=== PATIENT | male | born 1980 | race Caucasian/White ===

== ENCOUNTER → 2016-03-07 | Outpatient (CLI) | payer OTHER ==
--- NOTE | 2016-03-07 22:29 | MR ---
EXAMINATION TYPE: MR brain and iac wo/w con DATE OF EXAM: 03/07/2016 7:09 PM COMPARISON: NONE HISTORY: Left Side Hearing Loss with some Dizzy CONTRAST: Standard multiplanar, multisequence MRI departmental protocol utilizing 15 mL intravenous MultiHance gadolinium contrast. FINDINGS: The ventricles and sulci appear normal. There is no mass effect or midline shift. There is no sign of intracranial hemorrhage. Goss and white matter structures have normal signal pattern. Ther e is no evidence of cerebral edema. Corpus callosum appears normal. Sella turcica appears normal. The optic chiasm appears normal. Pituitary stalk is in the midline. There is no pathologic enhancement. The internal auditory canals appear normal. There is no evidence of a cerebellopontine angle mass. Br ainstem has normal signal pattern. The temporal bones have normal signal pattern. There is no evidenc e of mastoiditis. There is no pathologic enhancement in the posterior fossa. IMPRESSION: Normal MR scan of the brain. Normal MR scan of the posterior fossa including the internal auditory canals. I do not see a cause fo r left-sided hearing loss.
== END | disposition home or self-care (01) ==
LOC: RADMRIMAIN 17:54
PROVIDERS: ATTEND Otolaryngology
DX: H93.3X2 Disorders of left acoustic nerve (principal); H91.92 Unspecified hearing loss, left ear; R42 Dizziness and giddiness
CPT/HCPCS: 70553; A9577

== ENCOUNTER 2019-03-14 10:07 | Day surgery (SDC) | payer BC, OTHER ==
[2019-03-09 15:43] VITALS: BMI 26.6
[~2019-03-14 10:07] MED LIST: LACTATED RINGERS 1,000 ML IV SCH
[2019-03-14 10:28] VITALS: TEMP 98.1
[2019-03-14] MEDS ORDERED: MIDAZOLAM 2 MG/2 ML VIAL ONE (10:28)
[2019-03-14] MEDS ORDERED: fentaNYL (PF) 50 MCG/ML 2 ML AMP ONE (10:28)
[2019-03-14] MEDS ORDERED: PROPOFOL 10 MG/ML 20 ML VIAL IV ONE (10:28)
--- NOTE | 2019-03-14 10:58 | P.PCN ---
Date of Procedure: 03/14/19 Description of Procedure: BRIEF HISTORY: Patient is a 39-year-old male presenting for outpatient es ophagogastroduodenoscopy for evaluation of symptoms of reflux. Patient reports using Prilosec OTC with relief of symptoms however his causes constipation. Denies any nausea or vomiting but does report bloating and distention. PROCEDURE PERFORMED: Esophagogastroduodenoscopy with biopsy. PREOPERATIVE DIAGNOSIS: GERD. ESTIMATED BLOOD LOSS: Minimal. IV sedation per anesthesia. PROCEDURE: After informed consent was obtained, the patient was brought into the endoscopy unit. IV sedation was administered by Anesthesia under continuous monitoring. Initially the Olympus GIF-190 video endoscope was inserted into the mouth. Esophagus intubated without any difficulty. It was gradually advanced into the stomach and duodenum and carefully examined. The bulb and the second part of the duodenum appeared normal with biopsies taken to rule out Celiac sprue. The scope at this time was withdrawn to the stomach, adequately insufflated with air, and upon careful examination, mucosa of the antrum, body, cardia and the fundus appeared normal, except for some mild punctate erythema in the antrum and body suggestive of mild gastritis with biopsies taken. The scope was then withdrawn into the esophagus. The GE junction was located at 39 cm from the incisors, with biopsies taken to rule out reflux esophagitis. The esophagus appeared normal. There were no erosions or ulcerations seen and the patient tolerated the procedure well. IMPRESSION: 1. Mild gastritis antrum body, biopsied. 2. Biopsies of the duodenum and GE junction. RECOMMENDATIONS: The findings of this examination were discussed with the patient and his . Okay to resume diet. Okay to resume medications. GERD lifestyle modifications discussed. Patient to try famotidine as an alternative to Prilosec daily relief of reflux if symptoms persist. Await pathology from biopsies.
[2019-03-14 11:21] VITALS: BP 134/89; PULSE 74; RESP 18
== END 2019-03-14 11:33 | disposition home or self-care (01) ==
LOC: ORWHC2ENDO 10:07
PROVIDERS: ATTEND Internal Medicine
DX: K29.50 Unspecified chronic gastritis without bleeding (principal); K21.9 Gastro-esophageal reflux disease without esophagitis; Z88.0 Allergy status to penicillin; Z88.1 Allergy status to other antibiotic agents; Z88.2 Allergy status to sulfonamides; Z79.899 Other long term (current) drug therapy; Z98.818 Other dental procedure status; Z80.0 Family history of malignant neoplasm of digestive organs
CPT/HCPCS: 88305; 43239; J2250; J3010; J2704

== ENCOUNTER 2020-01-05 08:08 | Day surgery (SDC) | payer BC ==
[2020-01-03 09:07] VITALS: BMI 25.8
[~2020-01-05 08:08] MED LIST changes: +LIDOCAINE 1% (10MG/ML) FOR IV START INTRADERMA PRN
[2020-01-05 08:25] VITALS: TEMP 97.6
[2020-01-05] MEDS ORDERED: LACTATED RINGERS 1,000 ML IV ONE (08:26)
[2020-01-05] MEDS ORDERED: fentaNYL (PF) 50 MCG/ML 2 ML AMP ONE (08:52)
[2020-01-05] MEDS ORDERED: MIDAZOLAM 2 MG/2 ML VIAL ONE (08:52)
[2020-01-05] MEDS ORDERED: PROPOFOL 10 MG/ML 20 ML VIAL IV ONE (08:52)
--- NOTE | 2020-01-05 09:19 | P.PCN ---
Date of Procedure: 01/05/20 Description of Procedure: BRIEF HISTORY: Patient is a 39-year-old male presenting for outpatient colonoscopy for evaluation of alternating diarrhea and constipation, change in bowel habits. He reports one year of symptoms of alternating diarrhea and constipation. He reports abdominal pain in association with his symptoms. No family history of colon cancer or IBD. PROCEDURE PERFORMED: Colonoscopy with biopsy. PREOPERATIVE DIAGNOSIS: Alternating diarrhea and constipation, change in bowel habits, no prior colonoscopy. ESTIMATED BLOOD LOSS: Minimal. IV sedation per Anesthesia. PROCEDURE: After informed consent was obtained, the patient, was brought into the endoscopy unit. IV sedation was administered by Anesthesia under continuous monitoring. Digital rectal examination was normal. Initially the Olympus CF-190 flexible video colonoscope was then inserted in the rectum, gradually advanced into the cecum without any difficulty. Careful examination was performed as the scope was gradually being withdrawn. Ileocecal valve and the appendiceal orifice were visualized and appeared normal. Prep was excellent. Mucosa of the cecum, ascending colon, transverse colon, descending colon, sigmoid colon, and rectum appeared normal, with biopsies taken of the right and left colon in the setting of altered bowel function. The terminal ileum was also normal in appearance with biopsies taken. Retroflexion was performed in the rectum and no lesions were seen. The patient tolerated the procedure well. IMPRESSION: Normal-appearing colon from rectum to cecum and normal appearing terminal ileum, with random biopsies taken of the right colon, left colon and terminal ileum. RECOMMENDATIONS: Findings of this examination were discussed with the patient and his . Okay to resume diet. Okay to resume medications. Await pathology from biopsies. Follow up with primary care physician as previously scheduled.
[2020-01-05 09:42] VITALS: BP 136/94; PULSE 64; RESP 20
== END 2020-01-05 10:06 | disposition home or self-care (01) ==
LOC: ORWHC2ENDO 08:08
PROVIDERS: ATTEND Internal Medicine
DX: R19.7 Diarrhea, unspecified (principal); K59.00 Constipation, unspecified; K21.9 Gastro-esophageal reflux disease without esophagitis; Z98.890 Other specified postprocedural states; Z79.1 Long term (current) use of non-steroidal anti-inflammatories (NSAID); Z79.899 Other long term (current) drug therapy; Z88.0 Allergy status to penicillin; Z88.2 Allergy status to sulfonamides
CPT/HCPCS: 88305; 45380; J2250; J3010; J2704

== ENCOUNTER → 2021-05-28 | Outpatient (CLI) | payer BC ==
--- NOTE | 2021-05-28 09:27 | US ---
EXAMINATION TYPE: US gallbladder DATE OF EXAM: 05/28/2021 COMPARISON: NONE CLINICAL HISTORY: 41-year-old male K82.4 GALLBLADDER POLYP. RUQ Pain TECHNIQUE: Multiple sonographic images of the right upper quadrant are obtained. FINDINGS: EXAM MEASUREMENTS: Liver Length: 13.9 cm Gallbladder Wall: .2 cm CBD: .4 cm Right Kidney: 10.6 x 3.9 x 4.8 cm Pancreas: Most of the pancreas is visualized. Duct is prominent but nondilated measuring 2 mm in uli tor. Liver: Increased echogenicity and far field attenuation. No focal lesion seen. Gallbladder: 6 mm anterior wall gallbladder polyp visualized. No abnormal distention, wall thickening , pericholecystic fluid, or shadowing calculi. Evidence for sonographic Espinal's sign: No CBD: wnl Right Kidney: wnl IMPRESSION: 1. Mild to moderate hepatic steatosis. 2. A 6 mm anterior gallbladder wall polyp. Six-month follow-up could be performed.
== END | disposition home or self-care (01) ==
LOC: RADUSWWP 07:03
PROVIDERS: ATTEND Surgery
DX: K82.4 Cholesterolosis of gallbladder (principal); K76.0 Fatty (change of) liver, not elsewhere classified
CPT/HCPCS: 76705

== ENCOUNTER → 2021-06-11 | Outpatient (CLI) | payer BC ==
--- NOTE | 2021-06-11 15:01 | NM ---
EXAMINATION TYPE: NM hepatobiliary w CCK DATE OF EXAM: 06/11/2021 COMPARISON: Ultrasound gallbladder May 28, 2021 HISTORY: Cholesterolosis of the gallbladder. Epigastric pain. TECHNIQUE: After the intravenous administration of 4.32 mCi Tc 99m Mebrofenin hepatobiliary scintigra phy is performed. Immediate images post injection. FINDINGS: There is satisfactory initial accumulation of tracer by the liver. The gallbladder is visualized wit hin 45 minutes. The small bowel activity is noted within 10 minutes. At one hour CCK was administer ed, patient was injected with 1.7 mcg of Kinevac, and gallbladder ejection fraction is calculated at 92 %, not deviated from the normal range. Therefore there is no scintigraphic evidence of cystic or common bile duct obstruction to suggest acute cholecystitis or gallbladder hypokinesia. IMPRESSION: Ejection fraction is 92%, some consider this abnormal or a hyperkinetic response.
== END | disposition home or self-care (01) ==
LOC: RADNMMAIN 12:55
PROVIDERS: ATTEND Surgery
DX: K82.4 Cholesterolosis of gallbladder (principal)
CPT/HCPCS: 78227; A9537; J2805